=== PATIENT | female | born 1945 | race Caucasian/White ===

== ENCOUNTER 2016-05-19 13:58 | Inpatient (IN) | payer OTHER ==
[~2016-05-19] VITALS: Ht 157.5 cm; Wt 54.0 kg
--- NOTE | ~2016-05-19 | H ---
[facility] [place] [address] HISTORY AND PHYSICAL Name: SHERIE BREWSTER Room #: 307-P ADM IN M.R.#: [id number] Admission: 05/19/16 Attend Phys: Ayaan Gan MD Discharge: Date of : 43 Report #: [id number] THIS REPORT FOR: //name// CC: INÉS Gan PREOPERATIVE DIAGNOSIS: Cholecystitis. HISTORY OF PRESENT ILLNESS: The patient is a 71-year-old who was originally set up for surgery on Sunday. The patient called today that she was having pain on the right side and she [place] of hours away from this area. I recommended she come up here and she was seen in the ER. CT lab with chemistry did not show any obvious problem. The patient was felt to have gallbladder disease and she is here for gallbladder surgery. She is being admitted, so we will go ahead with gallbladder surgery. The patient had been having abdominal pain back in 2011. She has had a cyst in her liver that was treated at the [facility]. The patient complains of pain on the right side. It is worse at certain time. No particular trigger. The pain is worse if she overeats. She also has been complaining of severe bloating. No nausea, no vomiting, increased gas, the pain does go to her back. She has had PIPIDA scan in the past. Her PIPIDA scan showed a low gallbladder ejection fraction of 34%. She does not have any gallstones. PAST MEDICAL HISTORY: She has had a cyst that was felt to have hemorrhaged and had liver cyst and had surgery with enucleation of the cyst 07/2011. The patient has seasonal allergies. Celiac disease. History of appendicitis. She denies any heart problems. She denies any diabetes, heart disease, high blood pressure, any other kidney or liver disease. No bleeding disorder. No history of any blood clot. PAST SURGICAL HISTORY: Tonsillectomy 1969. Hysterectomy in 1989. Surgery for ruptured appendix 1995. Liver cyst enucleation. 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 Dental work. MEDICATIONS: Cetirizine 10 mg, Nasonex as needed. ALLERGIES: SHE IS ALLERGIC TO PENICILLIN, SULFA, DEMEROL, IODINE, BETADINE, CODEINE, CIPRO, PERCOCET, BENZOYL PEROXIDE, CT CONTRAST CAUSES ITCHING AND HIVES, TAPE CAUSES REDNESS, ITCHING, TYLENOL, DOXYCYCLINE, TRAMADOL CAUSES CONSTIPATION. FAMILY HISTORY: No significant medical problems. SOCIAL HISTORY: Does not smoke or drink. REVIEW OF SYSTEMS: Unremarkable. [address] [address] HISTORY AND PHYSICAL Name: SHERIE BREWSTER Room #: [facility] IN ..#: [id number] Admission: 05/19/16 Attend Phys: Ayaan Gan MD Discharge: Date of : 43 Report #: [id number] PHYSICAL EXAMINATION: GENERAL: She is an elderly female in no acute distress. HEENT: Pupils reactive to light. Extraocular muscles are intact. Oropharynx is clear. NECK: Soft and supple, no masses. LUNGS: Clear to auscultation. HEART: Regular rate and rhythm. No murmur or gallop. ABDOMEN: Soft and nondistended with some tenderness in the right upper quadrant. No mass, guarding, rigidity or rebound. EXTREMITIES: No cyanosis, clubbing or edema. IMPRESSION: The patient with right upper quadrant pain that has been going on for a while. Workup did not show any stone, but she did have low gallbladder ejection fraction. Her pain sounds to me like gallbladder. She said that when she had an ultrasound performed and pressing over the gallbladder she was quite tender. She was scheduled for surgery later in May. She moved it up to next week and then called today because she is having worsening of her pain. She came to the ER and is being admitted for gallbladder surgery. We will proceed with laparoscopic cholecystectomy in the morning. By: 30 43 Ayaan Gan MD /nt
--- NOTE | ~2016-05-19 | O ---
[facility] [place] [address] OPERATIVE REPORT Name: SHERIE BREWSTER Room #: 307-P ADM IN M.R.#: [id number] Admission: 05/19/16 Attend Phys: Ayaan Gan MD Discharge: Date of : 43 Report #: [id number] THIS REPORT FOR: //name// CC: INÉS Gan DATE OF SERVICE: 05/20/2016 PREOPERATIVE DIAGNOSIS: Cholecystitis, acalculous. POSTOPERATIVE DIAGNOSIS: Cholecystitis, acalculous. PROCEDURES PERFORMED: Laparoscopic cholecystectomy with cholangiogram. ANESTHESIA: General anesthesia. COMPLICATIONS: None. ESTIMATED BLOOD LOSS: 10 mL. SURGEON: Ayaan Gan M.D. FINDINGS: There is adhesion from her prior liver cyst retraction over the liver. There is some adhesion adjacent to the gallbladder consistent with cholecystitis. Cystic duct was small sized and some fibrosis present. The common bile duct is normal on operative cholangiogram. Gallbladder also contained cholesterolosis. DESCRIPTION OF PROCEDURE: With the patient under general anesthesia, abdomen was prepped and draped in sterile fashion. IV antibiotic was administered. Timeout was performed. A 0.25% Marcaine was used to anesthetize the skin, abdominal wall and all the trocar sites. A 2 cm curvilinear incision was made infraumbilically. Fascia was identified, grasped with hemostat. Fascia was then opened under visualization, 0 Vicryl suture was placed on the fascia for retraction. Veress needle was then placed through peritoneum. Abdominal cavity was insufflated with CO2. Pneumoperitoneum was established without difficulty. An 11 mm trocar was placed into the pneumoperitoneum. No harm to underlying tissue. The 11 mm trocar was placed under visualization. Two 5 mm trocars were placed to right upper quadrant. There was adhesion over the liver. This was from her prior liver cyst resection. These were filmy and were able to be taken down easily. The gallbladder was identified in the lateral position. The gallbladder was noted to be moderately elongated. The proximal part of the gallbladder was identified. Lateral to the gallbladder, there is adhesion of fatty tissue to the liver edge. The peritoneum was dissected free over the cystic duct and artery. The common bile duct was identified and preserved from harm. The cystic duct is small sized and somewhat thickened. The cystic duct [address] [address] OPERATIVE REPORT Name: SHERIE BREWSTER Room #: [facility] IN .R.#: [id number] Admission: 05/19/16 Attend Phys: Ayaan Gan MD Discharge: Date of : 43 Report #: [id number] was isolated, a clip was placed in junction of cystic duct to the gallbladder, opening was made in cystic duct. Cholangiogram catheter was inserted. The catheter went in without difficulty. Fluoroscopic cholangiogram was obtained. The cystic duct was visualized and the catheter was identified in the cystic duct. No harm to common duct. Common bile duct was filled out pretty well without any filling defect. Common duct is mildly dilated. The cholangiogram catheter was then removed. The proximal cystic duct was then clipped times 2 and then divided. Cystic artery was found laterally and then clipped times 2 proximally and one distally and then divided. Gallbladder was freed from the liver bed without difficulty. Gallbladder was then retrieved through the infraumbilical port, switching to a 5 mm scope placed epigastrically. Gallbladder was opened off the field. The bile was sludgy, thickened looking. There is cholesterolosis identified in the gallbladder wall. No stones identified. The liver bed was checked, hemostasis excellent. Clips were intact. Irrigation was performed and irrigation was aspirated out. CO2 was also evacuated as much as possible. Trocars were removed. The infraumbilical fascial defect at the 11 mm trocar site was identified and then closed with the assistance of the stay sutures. This was closed with dptiod-lg-mnxce 0 Vicryl times 2. Skin was irrigated, closed with 5-0 PDS. Steri-Strip and Band-Aids applied. The patient tolerated the procedure. By: [id number] Ayaan Gan MD /anson
--- NOTE | ~2016-05-19 | S ---
[facility] [place] [address] SURGICAL PATH RPT PROCEDURE Name: RHONDA BREWSTER Room #: 307-P DIS IN M.R.#: [id number] Admission: 05/19/16 Date of : 43 Discharge: 05/21/16 Report #: [id number] Path Case #: [id number] PATHOLOGY REPORT COLLECTION DATE: 05/20/2016 RECEIVED DATE: 05/22/2016 SUBMITTING PHYS: Dr. Ayaan Gan OTHER PHYS: Dr. Harleen Giraldo M.D. SPECIMEN(S) RECEIVED: A.Gallbladder * * * * * * * * * * * * FINAL DIAGNOSIS: Gallbladder, cholecystectomy: - Mild chronic cholecystitis. (IUV:mgr; d/t: 05/23/16) PATHOLOGIST: Radha Burns M.D. REPORT ELECTRONICALLY SIGNED BY: Radha Burns M.D. DATE/TIME: 05/23/2016 14:43 * * * * * * * * * * * * GROSS PATHOLOGY: Received in formalin labeled "Rhonda Brewster and gallbladder," is a 7.9 x 2.7 x 0.9 cm, previously opened gallbladder with bile-stained and wrinkled serosal surfaces. The gallbladder was previously opened to reveal dark green and velvety mucosa and an average wall thickness of 0.2 cm. Calculi are not present and no masses are noted grossly. Customer Engineering Specialist sections from the body and fundus are submitted along with the proximal margin in cassette A1. (TTL; 05/22/2016) CLINICAL HISTORY: Cholecystitis INITIAL CPT CODE(S): A; 68836 Professional services performed by [facility] at [facility] [address], [place] [address] Technical services performed by [facility] at [address] [place] [id number]. [facility] [address] [place] [address] SURGICAL PATH RPT PROCEDURE Name: RHONDA BREWSTER Room #: 307-P [facility] IN M.R.#: [id number] Admission: 05/19/16 Date of : 43 Discharge: 05/21/16 Report #: [id number] Path Case #: [id number] [facility] [address] [address] PHONE: [phone] DIRECTOR: Tato Lewis M.D. * * * END OF REPORT * * *
[~2016-05-19 13:58] MED LIST: NASONEX17 GM NASAL; ZYRTEC10 M5 PO
[2016-05-19 14:00] VITALS: BP 186/100
[2016-05-19 14:57] LABS: ANION GAP 7 mmol/L (7-16); BUN 11 mg/dL (7-18); CALCIUM 9.2 mg/dL (8.5-10.1); CHLORIDE 107 mmol/L (98-107); CO2 24 mmol/L (21-32); CREATININE 0.7 mg/dL (0.6-1.3); GLUCOSE 128 mg/dL (70-99); POTASSIUM 3.9 mmol/L (3.5-5.1); SODIUM 138 mmol/L (136-145)
[2016-05-19 15:02] LABS: ALBUMIN 3.8 g/dL (3.4-5.0); ALKALINE PHOSPHATASE 83 U/L (46-116); DIRECT BILIRUBIN < 0.1 mg/dL (<0.1-0.3); SGOT 26 U/L (15-37); SGPT 18 U/L (30-65); TOTAL BILIRUBIN 0.7 mg/dL (<0.1-1.0); TOTAL PROTEIN 7.6 g/dL (6.4-8.2)
[2016-05-19 16:37] VITALS: BP 150/95
[2016-05-19 17:30] VITALS: BP 206/114
[2016-05-19 18:50] VITALS: BP 194/102
[2016-05-19 19:30] VITALS: BP 155/78
[2016-05-19 23:38] VITALS: BP 169/85
[2016-05-20] VITALS (9 sets, daily range): BP systolic 120–172; BP diastolic 65–85
[2016-05-20 04:04] LABS: ABSOLUTE NEUTROPHILS 2.2 thou/uL (1.4-8.2); BASOPHILS 0.7 % (0.0-2.0); EOSINOPHILS 3.8 % (0.0-3.0); HEMATOCRIT 39.9 % (37.0-47.0); HEMOGLOBIN 13.4 gm/dL (12.0-15.0); LYMPHOCYTES 32.8 % (24.0-44.0); MCH 29.2 pg (26.0-34.0); MCHC 33.6 g/dL (28.0-37.0); MCV 86.9 fL (80.0-100.0); MONOCYTES 11.3 % (1.0-8.0); PLATELET COUNT 169 thou/uL (150-400); POLYS 51.4 % (36.0-66.0); RBC 4.59 mil/uL (4.20-5.00); RDW 12.8 % (10.5-14.5); WBC 4.2 thou/uL (4.0-11.0)
[2016-05-20 04:06] LABS: MANUAL DIFF NO
[2016-05-20 04:12] LABS: APTT 26.6 Seconds (24.5-32.8); INR 1.1
[2016-05-20 04:17] LABS: ALBUMIN 3.3 g/dL (3.4-5.0); CALCIUM 8.3 mg/dL (8.5-10.1); CREATININE 0.6 mg/dL (0.6-1.3); MAGNESIUM 2.1 mg/dL (1.8-2.4); POTASSIUM 3.5 mmol/L (3.5-5.1); TOTAL BILIRUBIN 1.1 mg/dL (<0.1-1.0); TOTAL PROTEIN 6.5 g/dL (6.4-8.2)
[2016-05-20 23:05] LABS: GLYCOHEMOGLOBIN (HGB A1C) 5.3 % (4.8-5.6)
[2016-05-21 04:15] VITALS: BP 120/63
[2016-05-21 09:37] VITALS: BP 125/61
[2016-05-21] MEDS ORDERED: CARVEDILOL3.125 MG PO (11:41)
[2016-05-21] MEDS ORDERED: ACETAMINOPHEN325 M1 PO (11:41)
[2016-05-21 11:53] VITALS: BP 125/61
== END 2016-05-21 15:35 | disposition home or self-care (01) | DRG 418 ==
LOC: ER 13:58 → EROBS 16:02 → 3N 16:02
PROVIDERS: Nurse Practitioner
PROC: BF121ZZ Fluoroscopy of Gallbladder using Low Osmolar Contrast (ICD-10-PCS; principal; 2016-05-20)
PROC: 0FT44ZZ Resection of Gallbladder, Percutaneous Endoscopic Approach (ICD-10-PCS; principal; 2016-05-20)
DX: K81.9 Cholecystitis, unspecified (principal); I16.1 Hypertensive emergency; J47.9 Bronchiectasis, uncomplicated; I10 Essential (primary) hypertension; Z90.710 Acquired absence of both cervix and uterus; Z90.49 Acquired absence of other specified parts of digestive tract; Z91.041 Radiographic dye allergy status; Z88.0 Allergy status to penicillin; Z88.8 Allergy status to other drugs, medicaments and biological substances; Z88.6 Allergy status to analgesic agent; Z88.1 Allergy status to other antibiotic agents; Z91.011 Allergy to milk products
CPT/HCPCS: 10094; 50101; 50411; 50555; 50558; 51489; 53307; 53310; 55245; 55317; 56462; 56525; 56526; 62110; 62900; 70005